=== PATIENT | female | born 1955 | race Caucasian/White ===

== ENCOUNTER 2017-01-30 23:24 | Inpatient (IN) | payer OTHER ==
[~2017-01-30] VITALS: Ht 160 cm; Wt 60.5 kg
[~2017-01-30 23:24] MED LIST: ACET50TA PO; ADV500INH INH; ALBU17IN INH; ALBU83IN INH; CALC600T7 PO; CALCD50TA PO; CALCIUM PO; CENT1TAB PO; DELT1TAB PO; DOCU100C PO; DOCU10ELUD PO; FLON0.054; FLOV100A3 INH; FLUT11IN INH; FLUT1SPR2; INCR1INH INH; LEXA1TAB2 PO; MEDR4PAK PO; MILKSUS PO; MUCI600T34 PO; NASA55AE; NICO14PA EXT; NICO7DIS4 TD; OMEP40CA2 PO; PRED10TA PO; ROBISYP PO; SPIR1CAP INH; SPIRIVA INH; SYMB16INH INH; VENTAER INH; ZITH250T PO; ZITH500T PO; [UNRECOGNIZED DRUG - OTHER] PO
[2017-01-31] MEDS ORDERED: IPRATROPIUM 0.5MG/ALBUTEROL 2.5MG INH SOL UD 3ML (DUONEB)(J7620) NEB PRN (00:45)
[2017-01-31 01:35] LABS: VENOUS BASE EXCESS 2.9 (-2.0-2.0); VENOUS PARTIAL PRESSURE CO2 45.2 mmHg (38.0-50.0); VENOUS PARTIAL PRESSURE O2 125.7 mmHg (30.0-50.0); VENOUS STANDARD HCO3 27.1 MEQ/L; VENOUS TOTAL CO2 29.5 MEQ/L (24.0-28.0)
[2017-01-31 01:37] LABS: BASO % 0.3 % (0.0-1.0); EOS # 0.1 K/mm3 (0.0-0.50); LARGE UNSTAINED CELL # 0.1 K/mm3 (0.0-0.4); LARGE UNSTAINED CELL % 0.4 % (0.0-4.0); LYMPH # 0.6 K/mm3 (1.5-4.5); LYMPH % 4.9 % (24.0-44.0); MEAN CORPUSCULAR HEMOGLOBIN 30.5 pg (27.0-33.0); MEAN CORPUSCULAR HGB CONC 32.3 g/dl (32.0-36.5); MEAN CORPUSCULAR VOLUME 94.3 fl (80.0-96.0); MONO # 0.2 K/mm3 (0.0-0.8); MONO % 1.3 % (0.0-5.0); NEUTROPHILS # 10.9 K/mm3 (1.8-7.7); NEUTROPHILS % 92.1 % (36.0-66.0); PLATELET COUNT, AUTOMATED 328 k/mm3 (150-450); RED CELL DISTRIBUTION WIDTH 12.2 % (11.5-14.5); WHITE BLOOD COUNT 11.8 K/mm3 (4.0-10.0)
[2017-01-31 02:03] LABS: ANION GAP 9 MEQ/L (8-16); BLOOD UREA NITROGEN 9 MG/DL (7-18); CARBON DIOXIDE LEVEL 29 MEQ/L (21-32); CHLORIDE LEVEL 102 MEQ/L (98-107); CREATININE FOR GFR 0.63 MG/DL (0.55-1.02); GLOMERULAR FILTRATION RATE > 60.0 (>45); GLUCOSE, FASTING 140 MG/DL (80-110); POTASSIUM SERUM 3.6 MEQ/L (3.5-5.1); SODIUM LEVEL 140 MEQ/L (136-145)
[2017-01-31] MEDS ORDERED: LevoFLOXacin IV 750 MG in APPROPRIATE DILUENT 1 EA IV ONE (02:45)
[2017-01-31] MEDS ORDERED: ALBUTEROL SULFATE 2.5 MG/0.5 ML INH NEB SOLN INH ONE (02:45)
[2017-01-31] MEDS ORDERED: LEVALBUTEROL 1.25 MG/0.5 ML CONCENTRATE NEB NEB PRN (07:15)
--- NOTE | 2017-01-31 07:51 | REP ---
Clinical: Cough. Dyspnea . Comparison: 10/22/2016 . Technique: PA and lateral. Findings: The mediastinum and cardiac silhouette are normal. The lung reed suggest emphysematous changes without acute consolidation, effusion, or pneumothorax. The skeletal structures are intact and normal. Impression: 1. Chronic emphysematous changes. 2. No acute cardiopulmonary process. Signed by Neeraj West MD 01/31/2017 07:42 A
[2017-01-31] MEDS ORDERED: LEVALBUTEROL 1.25 MG/0.5 ML CONCENTRATE NEB NEB ONE (08:00)
[2017-01-31] MEDS ORDERED: ALBUTEROL SULFATE 2.5 MG/0.5 ML INH NEB SOLN NEB SCH (08:00)
[2017-01-31] MEDS ORDERED: ASPIRIN 81 MG CHEW TABLET PO ONE (08:00)
[2017-01-31] MEDS ORDERED: NITROGLYCERIN 0.4 MG SUBL TABLET SL PRN (08:00)
[2017-01-31] MEDS ORDERED: ENOXAPARIN 40 MG/0.4 ML SYRINGE (J1650) SC ONE (08:15)
[2017-01-31] MEDS ORDERED: ATORVASTATIN 20 MG TAB PO ONE (08:15)
[2017-01-31] MEDS ORDERED: ALB2.5NEB INH (08:17)
[2017-01-31] MEDS: SYMBICORT 160/4.5MCG INHALER 6GM INH SCH ×2 (09:00→19:57)
--- NOTE | 2017-01-31 09:40 | ECGEPIP ---
Stationary ECG Study [facility] - ED Test Date: 2017-01-31 Pat Name: DAYNE MOHAN Department: Room: - Gender: F Criminal Psychologist: amanda : 1955 Requested By: EUGENIO Fairchild Order Number: [id number] Reading MD: Na Dias Measurements Intervals [place] Rate: 93 P: 86 VT: 136 QRS: 77 QRSD: 82 T: 70 QT: 358 QTc: 447 Interpretive Statements SINUS RHYTHM NONSPECIFIC ST & T-WAVE ABNORMALITY Electronically Signed On 01-31-2017 9:39:45 EDT by Na Dias
[2017-01-31 10:40] VITALS: BP 123/56
[2017-01-31] MEDS: LEVALBUTEROL 1.25 MG/0.5 ML CONCENTRATE NEB INH SCH ×4 (11:03→23:13)
[2017-01-31 12:00] VITALS: BP 120/52
[2017-01-31] MEDS: methylPREDNISolone INJ 125 MG/2 ML VIAL (J2930) IV SCH ×3 (12:00→23:29)
[2017-01-31] MEDS: DOXYCYCLINE HYCLATE 100 MG TAB PO SCH ×2 (12:01→20:18)
[2017-01-31] MEDS: MULTIVITAMINS/MINERALS THERAP 1 TAB PO SCH (12:02)
[2017-01-31] MEDS: PANTOPRAZOLE 40MG TAB (PROTONIX) PO SCH (12:02)
[2017-01-31] MEDS: guaiFENesin ER 600 MG TAB PO SCH ×2 (12:02→20:18)
[2017-01-31 16:00] VITALS: BP 140/58
[2017-01-31 20:15] VITALS: BP 133/63
[2017-01-31] MEDS: ESCITALOPRAM OXALATE 10 MG TAB (LEXAPRO) PO SCH (20:17)
--- NOTE | 2017-01-31 20:17 | HPEPDOC ---
General Date of Admission Jan 31, 2017 at 07:09 Primary Care Physician: LUISA BAILEY Attending Physician: TARA DE LA TORRE MD Chief Complaint The patient is a 61-year-old female admitted with a reason for visit of Acute Exacerbation Of Chronic Obstructive Airways. Source: Patient, RN notes reviewed, Old records Exam Limitations: No limitations Timing/Duration: Week(s) Associated Symptoms: Chest Pain, Cough, Headaches, Nausea, Shortness of breath , Weakness, Dizziness History of Present Illness Ms. Traore is a 61-year-old female who presents to [facility]'s emergency Department with increased shortness of breath. At time of evaluation she is on the progressive care unit. She is sitting comfortably on the hospital bed with a nasal cannula in place. She is accompanied by her grandson. Past medical history significant for pulmonary hypertension, chronic obstructive pulmonary disease on 2 L via nasal cannula, gastroesophageal reflux disease, depression, and throat cancer status post resection. Patient states that she presented to the emergency department because she couldn 't breathe. She states that she felt that she was hyperventilating and she felt diaphoretic. She states that she felt as if she was being suffocated. She reports feeling unwell for the past week. She states that she felt as if she was coming down with a cold, flu, or allergies. She been using her breathing machine and oxygen at home but was not improving. She states that her nose and eyes were burning and watery and reports that Mucinex helped some. She also reports a sore throat that she states is overall, a cough productive of clear to yellow sputum, and bilateral maxillary pain. Also reports a frontal headache that she describes as a cure dull. Further reports weakness, dizziness last evening without fall, chest pain on her lower left side that she describes as feeling as if she had "bumped into a dresser". States that she took 2 ibuprofen and it appeared to help. Also reports nausea two nights ago without vomiting. Reports increased burping. Also reports a pain in the left upper quadrant that she describes as being "punched in the gut". Admits to tingling in her toes without swelling. Hospitalist service was consulted and patient was subsequently admitted for further medical management. Home Medications Scheduled (Incruse Ellipta) 62.5 Mcg/Inh Inh 62.5 MCG INH DAILY (Reported) Budesonide/Formoterol (Symbicort 160-4.5 Mcg/Act) 60 Puff/Inhaler Aers 2 PUFF INH BID (Reported) Escitalopram Oxalate (Lexapro) 20 Mg Tab 20 MG PO QHS (Reported) Fluticasone Propionate (Fluticasone Propionate 0.05%) 120 [place]/16 Gm Naspr 2 SPRAY NA BID (Reported) PER NOSTRIL Guaifenesin (Mucinex) 600 Mg Tab 600 MG PO BID (Reported) Multivitamins (Centrum Silver Adult 50+) 1 Tab Tab 1 TAB PO DAILY (Reported) Omeprazole (Omeprazole) 40 Mg Cap 40 MG PO DAILY (Reported) Scheduled PRN Albuterol Sulfate (Ventolin Hfa) 200 Puff/8 Gm Aers 2 PUFFS INH Q4HP PRN PRN SHORTNESS OF BREATH (Reported) Albuterol Sulfate (Albuterol Sulfate) 2.5 Mg/0.5 Ml Neb 2.5 MG INH Q4H PRN PRN SHORTNESS OF BREATH (Reported) Allergies Coded Allergies: Sulfa Drugs (Verified Allergy, Intermediate, itching, rash, burning, ) Sulfa Drugs Cross Reactors (Verified Allergy, Intermediate, itching, rash , burning, 02/12/13) Penicillins (Verified Allergy, Unknown, rash, burning, itching, 06/14/14) Penicillins Cross Reactors (Verified Allergy, Unknown, rash, burning, itching, 06/14/14) Past Medical History Medical History 1. Chronic obstructive pulmonary disease on 2 L by nasal cannula 2. Pulmonary hypertension 3. Gastroesophageal reflux disease 4. Depression 5. Throat cancer status post resection Surgical History 1. Right breast lumpectomy 2. Throat resection 3. Nine genital cyst removals 4. Complete teeth removal Family History Significant Family History: Cancer (father, brother - prostate cancer), Heart disease (father), Vascular disease (Brother, myocardial infarction), Other ( mother, goiter) Social History * Smoker: former Smoker (third of a pack per day for 40 years) Alcohol: other (former) Drugs: denies Recent Travel/Sick Contacts: Denies: Recent sick contacts, Recent travel Lives independently with her daughter and her daughter's family Retired data management manager Reports to toxin the home Remote travel to [place] and domestic travel Denies environmental exposures Review of Symptoms Constitutional: Reports: Weakness, Denies: Chills, Fever, Night Sweats Eyes: Reports: Other (denies blurry vision, diplopia, acute transient vision loss) ENT: Reports: Head Aches (frontal, achy/dull), Sinus Congestion (bilateral maxillary sinuses), Sore Throat (overall), Denies: Epistaxis Skin: Denies: Lesions, Rash Pulmonary: Reports: Cough (productive of clear to yellow phlegm), Dyspnea Cardiovascular: Reports: Chest Pain (lower left thoracic), Lt Headedness, Denies: Edema, Orthopnea, Paroxysmal Noc. Dyspnea Gastrointestinal: Reports: Nausea, Other Symptoms (admits to increased burping) , Denies: Abdominal Pain, Constipation, Diarrhea, Hematochezia, Melena, Vomiting Genitourinary: Denies: Dysuria, Frequency, Hematuria, Incontinence Hematologic: Denies: Bruising, Petecchia, Purpura Musculoskeletal: Reports: Spasms (tingling in her feet and toes) Neurological: Reports: Weakness Physical Examination General Exam: Positive: Alert, Cooperative, No Acute Distress Eye Exam: Positive: Conjunctiva & lids normal, EOMI, PERRLA, Negative: Sclera icteric ENT Exam: Positive: Atraumatic, Mucous membr. moist/pink, Nares Patent (nasal cannula in place), Tongue Midline Neck Exam: Positive: Supple, Negative: JVD, Lymphadenopathy, thyromegaly Chest Exam: Positive: Clear to auscultation, Normal air movement Heart Exam: Positive: Normal S1, Normal S2, Rate Normal, Regular Rhythm, Negative: Murmurs, Rubs Abdomen Exam: Positive: Normal bowel sounds, Soft, Negative: Hepatospenomegaly, Hernia, Mass, Tenderness Extremity Exam: Positive: Normal pulses, Negative: Clubbing, Cyanosis, Edema, Swelling, Tenderness Neuro Exam: Positive: Cranial Nerves 3-12 NL, Normal Speech, Strength at 5/5 X4 ext Other physical findings Chest x-ray IMPRESSION: 1. Chronic emphysematous changes. 2. No acute cardiopulmonary process. Vital Signs T 98.7 HR 66 BP 111/59 O2 96% on 2 L by nasal cannula Height (in): 63 Weight (kg): 57.1 BMI (kg): 22.3 Laboratory Data Labs 24H Laboratory Tests 2 01/31/17 01:20: Anion Gap 9, White Blood Count 11.8H, Red Blood Count 4.61, Hemoglobin 14.0, Hematocrit 43.5, Mean Corpuscular Volume 94.3, Mean Corpuscular Hemoglobin 30.5 , Mean Corpuscular Hemoglobin Concent 32.3, Red Cell Distribution Width 12.2, Platelet Count 328, Neutrophils (%) (Auto) 92.1H, Lymphocytes (%) (Auto) 4.9L, Monocytes (%) (Auto) 1.3, Eosinophils (%) (Auto) 1.0, Basophils (%) (Auto) 0.3, Neutrophils # (Auto) 10.9H, Lymphocytes # (Auto) 0.6L, Monocytes # (Auto) 0.2, Eosinophils # (Auto) 0.1, Basophils # (Auto) 0.0, Blood Gas Bicarbonate Standard 27.1, Blood Urea Nitrogen 9, Creatinine 0.63, Sodium Level 140, Potassium Level 3.6, Chloride Level 102, Carbon Dioxide Level 29, Calcium Level 9.0, Total Creatine Kinase 66, Creatine Kinase MB 3.5, Creatine Kinase MB Relative Index 5.30H, Glomerular Filtration Rate > 60.0, Large Unclassified Cells # 0.1, Large Unclassified Cells % 0.4, Troponin I 0.44H, Venous Blood Base Excess 2.9H, Venous Blood pH 7.412, Venous Blood Partial Pressure CO2 45.2 , Venous Blood Partial Pressure O2 125.7H, Venous Blood Total Carbon Dioxide 29.5H, Venous Blood HCO3 28.1H, Venous Blood Oxygen Saturation 99.0H 01/31/17 05:55: Total Creatine Kinase 90, Creatine Kinase MB 5.6H, Creatine Kinase MB Relative Index 6.22H, Troponin I 0.67#H 01/31/17 12:03: Total Creatine Kinase 97, Creatine Kinase MB 6.6H, Creatine Kinase MB Relative Index 6.80H, Troponin I 0.66H 01/31/17 17:47: Total Creatine Kinase 113, Creatine Kinase MB 6.4H, Creatine Kinase MB Relative Index 5.66H, Troponin I 0.68H CBC/BMP Laboratory Tests 01/31/17 01:20 Calcium Level 9.0, Total Creatine Kinase 66, Red Blood Count 4.61, Mean Corpuscular Volume 94.3, Mean Corpuscular Hemoglobin 30.5, Mean Corpuscular Hemoglobin Concent 32.3, Red Cell Distribution Width 12.2, Neutrophils (%) (Auto ) 92.1 H, Lymphocytes (%) (Auto) 4.9 L, Monocytes (%) (Auto) 1.3, Eosinophils (% ) (Auto) 1.0, Basophils (%) (Auto) 0.3, Neutrophils # (Auto) 10.9 H, Lymphocytes # (Auto) 0.6 L, Monocytes # (Auto) 0.2, Eosinophils # (Auto) 0.1, Basophils # (Auto) 0.0 Microbiology Microbiology 01/31/17 Blood Culture, Received Pending 01/31/17 Blood Culture, Received Pending 01/31/17 Gram Stain - Final, Resulted 01/31/17 Sputum Culture, Resulted Pending 01/31/17 Respiratory Virus Panel (PCR) (SUZETTE) - Final, Complete 01/31/17 Influenza Virus Type A Antigen - Final, Complete 01/31/17 Influenza Virus Type B Antigen - Final, Complete RAD Interpretation STUDY: CXR Rad Actions: Report Reviewed (Impression: Chronic emphysematous changes. No acute cardiopulmonary process.) Assessment/Plan Ms. Traore is a 61-year-old female with past medical history significant for chronic obstructive pulmonary disease on 2 L by nasal cannula, pulmonary hypertension, gastroesophageal reflux disease, depression, and throat cancer status post resection who presented with increased shortness of breath and increased use of her breathing treatments and oxygen likely secondary to acute exacerbation of chronic obstructive pulmonary disease. Problems (1) Acute exacerbation of chronic obstructive airways disease Status: Acute Problem Text: Chest x-ray shows chronic emphysematous change Provide breathing treatments Give Solu-Medrol 60 mg IV every 6 hours Monitor vital signs Begin doxycycline Provide Mucinex (2) Elevated troponin Status: Acute Problem Text: Troponin at presentation was 0.44 Repeated troponin was 0.67 EKG reveals no significant change from prior Current cardiac markers Monitor patient on progressive care unit Place patient on aspirin Provide nitroglycerin as needed (3) Depression Status: Chronic Problem Text: Continue patient on home medication Plan / VTE VTE Prophylaxis Ordered?: Yes (Lovenox 40 mg subcutaneous daily) Plan Plan Acute exacerbation of chronic obstructive pulmonary disease Patient reports increased shortness of breath with increased use of her medications and oxygen. Venous pH was 7.412. Patient has a white count of 11.8. Have started doxycycline as this patient is allergic to penicillin and sulfa. Both cause hives. We'll provide breathing treatments for symptomatically relief. Will provide Mucinex for sinus relief. Continue to monitor patient's daily vital signs and CBC. Patient remains on oxygen 2 L by nasal cannula. Influenza screen was negative. Blood cultures are pending. Chest x-ray reveals no acute pulmonary process and chronic emphysematous change. Elevated troponin Patient's troponin at presentation was 0.44. Repeated troponin was 0.67. EKG shows no reported change from prior EKG. We'll trend cardiac markers. Patient on 81 mg aspirin. Patient admitted to the progressive care unit for telemetry monitoring. Depression Patient remains on her medication of Lexapro. DVT prophylaxis: Lovenox 40 mg subcutaneous daily; compression stockings Diet: COPD Disposition The progressive care unit Anticipated hospitalization: 2 nights Attending: Dr. De La Torre Diet: Continue Current (COPD) Activity: Continue Current (out of bed at will with assistance) Respiratory: Other Respiratory (2 L by nasal cannula with titration orders to maintain saturation between 88-92%) Diagnostics: Check Labs, Repeat Labs in AM, Obtain Cultures Anticipated Discharge: Home WINTER AVALOS Jan 31, 2017 20:17
--- NOTE | 2017-01-31 21:20 | ECGEPIP ---
Stationary ECG Study [facility] Test Date: 2017-01-31 Pat Name: DAYNE MOHAN Department: Room: [place] [address] Gender: F Director Market Intelligence: BLOSSOM : 1955 Requested By: TARA Bailon Order Number: [id number] Reading MD: Pedro Boyer Measurements Intervals [place] Rate: 84 P: 80 MS: 128 QRS: 71 QRSD: 79 T: 62 QT: 409 QTc: 485 Interpretive Statements Normal sinus rhythm Nonspecific ST-T wave abnormalities No significant change when compared to prior tracing of earlier this date Electronically Signed On 01-31-2017 21:20:12 EDT by Pedro Boyer
[2017-01-31 23:56] VITALS: BP 128/65
[2017-02-01] MEDS: LEVALBUTEROL 1.25 MG/0.5 ML CONCENTRATE NEB INH SCH ×6 (03:38→22:36)
[2017-02-01 04:07] VITALS: BP 118/56
[2017-02-01 05:27] LABS: BASO % 0.1 % (0.0-1.0); EOS # 0.2 K/mm3 (0.0-0.50); EOS % 1.5 % (0.0-3.0); LARGE UNSTAINED CELL % 0.3 % (0.0-4.0); LYMPH # 0.5 K/mm3 (1.5-4.5); LYMPH % 3.7 % (24.0-44.0); MEAN CORPUSCULAR HEMOGLOBIN 30.2 pg (27.0-33.0); MEAN CORPUSCULAR HGB CONC 32.5 g/dl (32.0-36.5); MEAN CORPUSCULAR VOLUME 92.8 fl (80.0-96.0); MONO # 0.3 K/mm3 (0.0-0.8); NEUTROPHILS # 12.3 K/mm3 (1.8-7.7); NEUTROPHILS % 92.3 % (36.0-66.0); PLATELET COUNT, AUTOMATED 344 k/mm3 (150-450); RED CELL DISTRIBUTION WIDTH 12.2 % (11.5-14.5); WHITE BLOOD COUNT 13.3 K/mm3 (4.0-10.0)
[2017-02-01 05:45] LABS: ANION GAP 10 MEQ/L (8-16); BLOOD UREA NITROGEN 16 MG/DL (7-18); CALCIUM LEVEL 9.1 MG/DL (8.8-10.2); CARBON DIOXIDE LEVEL 28 MEQ/L (21-32); CHLORIDE LEVEL 107 MEQ/L (98-107); CREATININE FOR GFR 0.67 MG/DL (0.55-1.02); GLOMERULAR FILTRATION RATE > 60.0 (>45); GLUCOSE, FASTING 168 MG/DL (80-110); POTASSIUM SERUM 4.1 MEQ/L (3.5-5.1); SODIUM LEVEL 145 MEQ/L (136-145)
[2017-02-01 07:45] VITALS: BP 113/59
[2017-02-01] MEDS: SYMBICORT 160/4.5MCG INHALER 6GM INH SCH ×2 (07:57→19:40)
[2017-02-01] MEDS: TIOTROPIUM INHALER/CAPSULE (SPIRIVA) INH SCH (07:57)
--- NOTE | 2017-02-01 08:12 | ECHO ---
DATE: 01/31/2017 REFERRING PHYSICIAN: Dr. Alcantara. INDICATION: Chest discomfort. HEIGHT: 160 cm. WEIGHT: 54 kg. DIMENSION: IVS: 1.1 LV: 3.9 LVPW: 1.1 LA: 2.9 Aorta: 3.3 FINDINGS: The study is of good technical quality. Left ventricle is normal size and systolic function with estimated ejection fraction (EF) around 65-70%. No segmental wall motion abnormalities are appreciated. Right ventricle is also normal size and systolic function. Both atria appear normal. Aortic valve has minimal sclerotic abnormalities but normal mobility. There are also mild mitral annular calcifications at the base of posterior mitral leaflet. Tricuspid valve appears normal. Pulmonic valve was not well seen. No pericardial effusion is noted. Inferior vena cava is normal size. Aortic root is normal. Aortic arch was not visualized. Abdominal aorta appears normal. Doppler interrogation reveals no aortic valve disease. There is trace mitral insufficiency. Tricuspid valve is functionally competent. Pulmonic valve was not well seen. Mitral inflow pattern and tissue Doppler imaging of mitral annulus reveal grade 1 diastolic dysfunction. Tissue Doppler velocities of mitral annulus are 6.0 cm/sec and septal annulus 8.7 cm/sec in lateral annulus. CONCLUSIONS: 1. Study is good technical quality. 2. Normal LV size and systolic function. 3. No significant valvular disease. 4. Normal central venous pressure. 5. Unable to estimate pulmonary artery pressure but no indirect signs to suggest pulmonary hypertension. COMMENTS: Subacute bacterial endocarditis (SBE) prophylaxis is not recommended. Study does not provide clear-cut explanation for chest discomfort.
[2017-02-01] MEDS: guaiFENesin ER 600 MG TAB PO SCH ×2 (08:58→20:52)
[2017-02-01] MEDS: ATORVASTATIN 20 MG TAB PO SCH (08:58)
[2017-02-01] MEDS: DOXYCYCLINE HYCLATE 100 MG TAB PO SCH ×2 (08:58→20:52)
[2017-02-01] MEDS: ASPIRIN 81 MG CHEW TABLET PO SCH (08:58)
[2017-02-01] MEDS: PANTOPRAZOLE 40MG TAB (PROTONIX) PO SCH (08:58)
[2017-02-01] MEDS: MULTIVITAMINS/MINERALS THERAP 1 TAB PO SCH (08:58)
[2017-02-01] MEDS: ENOXAPARIN 40 MG/0.4 ML SYRINGE (J1650) SC SCH (08:59)
--- NOTE | 2017-02-01 10:06 | ECGEPIP ---
Stationary ECG Study [facility] - ED Test Date: 2017-01-31 Pat Name: DAYNE MOHAN Department: Room: [place] [address] Gender: F Clipper Counters: amanda : 1955 Requested By: EUGENIO Fairchild Order Number: [id number] Reading MD: Herman Lewis Measurements Intervals [place] Rate: 84 P: 83 TX: 130 QRS: 75 QRSD: 76 T: 69 QT: 403 QTc: 476 Interpretive Statements SINUS RHYTHM NONSPECIFIC MODERATE ST DEPRESSION SIMILAR TO PRIOR ON SAME DATE Electronically Signed On 02-01-2017 10:05:49 EDT by Herman Lewis
--- NOTE | 2017-02-01 10:46 | IPNPDOC ---
Date Seen The patient was seen on 02/01/17. Progress Note SUBJECTIVE: Ms. Traore is laying on her right side upon evaluation this morning. She states that she is feeling a little better. Denies dizziness, weakness, lightheadedness. States that the chest pain that was present on admission has dissipated. Troponins continue to decline. This morning's troponin was 0.34. Denies any acute events overnight. Has no concerns this time. Patient reports that she is ambulating around the room without difficulty. States she has not ventured out into the nettles yet. She reports that she is on 2 L of oxygen 24 7. Have adjusted her Solu-Medrol dose to 80 mg every 12 hours. She was previously on 80 mg every 8 hours. OBJECTIVE PHYSICAL EXAMINATION: VITAL SIGNS: Please see below. GENERAL: Petite female laying on her right side upon evaluation this morning, is slightly older than stated age, in no apparent distress HEENT: Atraumatic, normocephalic, PERRL, EOMI, oral mucosa appears pink and moist, nasal septum appears midline, nasal cannula in place, nares appear patent CARDIOVASCULAR: Regular rate and rhythm, normal S1 and S2, no murmur, rub, click RESPIRATORY: Clear to auscultation bilaterally, adequate inspiratory and extremity airway excursion, no wheeze,, rhonchi, rales ABDOMINAL: Flat, soft, nontender, nondistended, diminished bowel sounds throughout EXTREMITIES: Peripheral pulses appreciated bilaterally in upper extremities, symmetrical, equal, +2/4; peripheral pulses difficult to appreciate in lower extremities, no edema appreciated, sequential stockings in place NEUROLOGICAL: Cranial nerves II through XII appear grossly intact, moving all four extremities appropriately PSYCHOLOGICAL: Appears somewhat subdued this morning LABORATORY DATA: Please see below. MICROBIOLOGY: Please see below. DVT prophylaxis ordered?: Lovenox 40 mg subcutaneous daily ASSESSMENT AND PLAN: This is a 61-year-old female who presented with increasing shortness of breath likely secondary to acute exacerbation of chronic obstructive pulmonary disease. PROBLEMS: 1. Acute exacerbation of chronic obstructive palmar disease: He should Solu- Medrol has been adjusted to 80 mg every 12 hours. Continues on Spiriva, Xopenex , Symbicort, Mucinex. Continues with doxycycline as patient has allergies to penicillin and sulfa drugs. White count is slightly elevated from yesterday 13.3. Likely secondary to Solu-Medrol. Continue to monitor with daily CBC. Respiratory panel, influenza screen and blood cultures have remained negative up to this point. 2. Elevated troponin: Patient's troponin continues to trend downward. Last recorded value was 0.34. Patient denies continued chest pain. Patient has nitroglycerin as needed for chest pain. 3. Depression: Patient remains on Lexapro. 4. Dyslipidemia: Patient is on Lipitor. 5. Gastroesophageal reflux disease: Patient remains on Protonix. DISPOSITION: Patient remains admitted to the progressive care unit. Have adjusted patient Solu-Medrol to 80 mg every 12 hours. White count shows a slight bump to 13.3, likely secondary to Solu-Medrol. Patient remains on 2 L by nasal cannula and is oxygenating well at 97%. Opponent's continued to decrease. Past or value was 0.34. Respiratory panel, influenza screen, and blood cultures have remained negative up to this point. Anticipate discharge in the next 2-3 days. VS, I&O, [facility] Vital Signs/I&O Vital Signs Date Time Temp Pulse Resp B/P Pulse Ox O2 Delivery O2 Flow Rate FiO2 02/01/17 09:40 Nasal Cannula 2.0 02/01/17 07:45 97.1 76 22 113/59 97 I&O- Last 24 Hours up to 6 AM 02/01/17 05:59 Intake Total 1070 ml Output Total 1200 ml Balance -130 ml Laboratory Data 24H LABS Laboratory Tests 2 01/31/17 12:03: Creatine Kinase MB 6.6H, Creatine Kinase MB Relative Index 6.80H, Total Creatine Kinase 97, Troponin I 0.66H 01/31/17 17:47: Creatine Kinase MB 6.4H, Creatine Kinase MB Relative Index 5.66H, Total Creatine Kinase 113, Troponin I 0.68H 01/31/17 23:53: Creatine Kinase MB 4.7H, Creatine Kinase MB Relative Index 5.40H, Total Creatine Kinase 87, Troponin I 0.52#H 02/01/17 05:13: Creatine Kinase MB 4.0H, Creatine Kinase MB Relative Index 5.71H, Total Creatine Kinase 70, Troponin I 0.34#H, Anion Gap 10, White Blood Count 13.3H, Red Blood Count 4.29, Hemoglobin 13.0, Hematocrit 39.8, Mean Corpuscular Volume 92.8, Mean Corpuscular Hemoglobin 30.2, Mean Corpuscular Hemoglobin Concent 32.5 , Red Cell Distribution Width 12.2, Platelet Count 344, Neutrophils (%) (Auto) 92.3H, Lymphocytes (%) (Auto) 3.7L, Monocytes (%) (Auto) 2.0, Eosinophils (%) ( Auto) 1.5, Basophils (%) (Auto) 0.1, Neutrophils # (Auto) 12.3H, Lymphocytes # ( Auto) 0.5L, Monocytes # (Auto) 0.3, Eosinophils # (Auto) 0.2, Basophils # (Auto ) 0.0, Blood Urea Nitrogen 16#, Creatinine 0.67, Sodium Level 145, Potassium Level 4.1, Chloride Level 107, Carbon Dioxide Level 28, Calcium Level 9.1, Glomerular Filtration Rate > 60.0, Large Unclassified Cells # 0.0, Large Unclassified Cells % 0.3 CBC/BMP Laboratory Tests 02/01/17 05:13 Calcium Level 9.1, Red Blood Count 4.29, Mean Corpuscular Volume 92.8, Mean Corpuscular Hemoglobin 30.2, Mean Corpuscular Hemoglobin Concent 32.5, Red Cell Distribution Width 12.2, Neutrophils (%) (Auto) 92.3 H, Lymphocytes (%) (Auto) 3.7 L, Monocytes (%) (Auto) 2.0, Eosinophils (%) (Auto) 1.5, Basophils (%) (Auto ) 0.1, Neutrophils # (Auto) 12.3 H, Lymphocytes # (Auto) 0.5 L, Monocytes # ( Auto) 0.3, Eosinophils # (Auto) 0.2, Basophils # (Auto) 0.0 Microbiology Microbiology 01/31/17 Blood Culture - Preliminary, Resulted No growth after 24 hours . All specim... 01/31/17 Blood Culture - Preliminary, Resulted No growth after 24 hours . All specim... 01/31/17 Gram Stain - Final, Resulted 01/31/17 Sputum Culture, Resulted Pending 01/31/17 Respiratory Virus Panel (PCR) (SUZETTE) - Final, Complete 01/31/17 Influenza Virus Type A Antigen - Final, Complete 01/31/17 Influenza Virus Type B Antigen - Final, Complete WINTER AVALOS-Ninfa Feb 01, 2017 10:46
[2017-02-01 11:50] VITALS: BP 123/57
[2017-02-01] MEDS: methylPREDNISolone INJ 125 MG/2 ML VIAL (J2930) IV SCH ×2 (13:03→23:48)
[2017-02-01 16:00] VITALS: BP 136/63
[2017-02-01 20:05] VITALS: BP 122/68
[2017-02-01] MEDS: ESCITALOPRAM OXALATE 10 MG TAB (LEXAPRO) PO SCH (20:52)
[2017-02-01] MEDS: ACETAMINOPHEN TAB 650MG DOSE (2X325MG) PO PRN (22:00)
[2017-02-01 23:53] VITALS: BP 127/64
[2017-02-02] MEDS: LEVALBUTEROL 1.25 MG/0.5 ML CONCENTRATE NEB INH SCH ×6 (04:00→23:52)
[2017-02-02 04:26] VITALS: BP 122/63
[2017-02-02 06:14] LABS: BASO % 0.1 % (0.0-1.0); EOS % 0.2 % (0.0-3.0); LARGE UNSTAINED CELL % 0.4 % (0.0-4.0); LYMPH # 0.5 K/mm3 (1.5-4.5); LYMPH % 4.3 % (24.0-44.0); MEAN CORPUSCULAR HEMOGLOBIN 30.6 pg (27.0-33.0); MEAN CORPUSCULAR HGB CONC 32.8 g/dl (32.0-36.5); MEAN CORPUSCULAR VOLUME 93.2 fl (80.0-96.0); MONO # 0.3 K/mm3 (0.0-0.8); MONO % 2.5 % (0.0-5.0); NEUTROPHILS # 9.5 K/mm3 (1.8-7.7); NEUTROPHILS % 92.6 % (36.0-66.0); PLATELET COUNT, AUTOMATED 317 k/mm3 (150-450); RED CELL DISTRIBUTION WIDTH 12.4 % (11.5-14.5); WHITE BLOOD COUNT 10.3 K/mm3 (4.0-10.0)
[2017-02-02 06:31] LABS: ANION GAP 5 MEQ/L (8-16); BLOOD UREA NITROGEN 15 MG/DL (7-18); CALCIUM LEVEL 8.6 MG/DL (8.8-10.2); CARBON DIOXIDE LEVEL 32 MEQ/L (21-32); CHLORIDE LEVEL 104 MEQ/L (98-107); CREATININE FOR GFR 0.66 MG/DL (0.55-1.02); GLOMERULAR FILTRATION RATE > 60.0 (>45); GLUCOSE, FASTING 161 MG/DL (80-110); MAGNESIUM LEVEL 1.8 MG/DL (1.8-2.4); POTASSIUM SERUM 4.3 MEQ/L (3.5-5.1); SODIUM LEVEL 141 MEQ/L (136-145)
--- NOTE | 2017-02-02 07:01 | ECGEPIP ---
Stationary ECG Study [facility] Test Date: 2017-01-31 Pat Name: DAYNE MOHAN Department: Room: [place] [address] Gender: F Infection Control Practitioner: : 1955 Requested By: TARA Bailon Order Number: [id number] Reading MD: Pedro Boyer Measurements Intervals [place] Rate: 81 P: 81 GA: 127 QRS: 74 QRSD: 81 T: 63 QT: 404 QTc: 469 Interpretive Statements Normal sinus rhythm Nonspecific ST-T wave abnormalities No significant change when compared to prior tracings of earlier this date Electronically Signed On 02-02-2017 7:01:03 EDT by Pedro Boyer
--- NOTE | 2017-02-02 07:02 | ECGEPIP ---
Stationary ECG Study [facility] Test Date: 2017-02-01 Pat Name: DAYNE MOHAN Department: Room: [place] [address] Gender: F Operations Officer: JOSELUIS : 1955 Requested By: TARA Bailon Order Number: [id number] Reading MD: Pedro Boyer Measurements Intervals [place] Rate: 74 P: 72 DE: 108 QRS: 66 QRSD: 86 T: 54 QT: 431 QTc: 480 Interpretive Statements Normal sinus rhythm with short DE interval and PACs Nonspecific ST-T wave abnormalities, less prominent than yesterday's tracings Electronically Signed On 02-02-2017 7:02:16 EDT by Pedro Boyer
[2017-02-02] MEDS: SYMBICORT 160/4.5MCG INHALER 6GM INH SCH ×2 (07:28→19:23)
[2017-02-02] MEDS: TIOTROPIUM INHALER/CAPSULE (SPIRIVA) INH SCH (07:28)
[2017-02-02 07:40] VITALS: BP 143/63
[2017-02-02] MEDS: MULTIVITAMINS/MINERALS THERAP 1 TAB PO SCH (09:27)
[2017-02-02] MEDS: guaiFENesin ER 600 MG TAB PO SCH ×2 (09:27→20:28)
[2017-02-02] MEDS: DOXYCYCLINE HYCLATE 100 MG TAB PO SCH ×2 (09:27→20:28)
[2017-02-02] MEDS: ATORVASTATIN 20 MG TAB PO SCH (09:27)
[2017-02-02] MEDS: PANTOPRAZOLE 40MG TAB (PROTONIX) PO SCH (09:27)
[2017-02-02] MEDS: predniSONE 20 MG TAB PO SCH ×2 (09:27→20:27)
[2017-02-02] MEDS: ASPIRIN 81 MG CHEW TABLET PO SCH (09:27)
[2017-02-02] MEDS: ENOXAPARIN 40 MG/0.4 ML SYRINGE (J1650) SC SCH (09:27)
--- NOTE | 2017-02-02 09:31 | IPNPDOC ---
Date Seen The patient was seen on 02/02/17. Progress Note SUBJECTIVE: Ms. rTaore is evaluated at bedside this morning. She is just finishing breakfast during my evaluation. She reports that she did request to breathing treatments overnight last night. Also reports bilateral rib pain. States that she is expectorating more sputum and coughing. Reports that she is ambulating in her room. Have recommended that patient ambulates with the nurse in the hallway. Advised patient that IV steroids will be changed to by mouth tapering dose steroids. Started patient on prednisone 60 mg twice a day. Past patient and she feels ready to discharge and she states that she thinks needs another day or two. Denies further chest pain, nausea, vomiting, abdominal pain. Says her breathing has improved somewhat. States that she still having episodes of intermittent burping. Patient did call her daughter on the telephone and I discussed with daughter for mother's treatment and management. Discussed extensively with her the elevated troponin level and that evaluation thus far has been negative. OBJECTIVE: PHYSICAL EXAMINATION: VITAL SIGNS: Please see below. GENERAL: Petite female sitting comfortably in hospital bed on evaluation this morning, appears stated age, in no apparent distress, nasal cannula in place HEENT: Atraumatic, normocephalic, PERRL, EOMI, oral mucosa appears pink and moist, nasal septum appears midline, nares patent, nasal cannula in place CARDIOVASCULAR: Regular rate and rhythm, normal S1 and S2, no murmur, rub, click RESPIRATORY: Clear to auscultation bilaterally, adequate inspiratory and expiratory airway excursion, no wheeze, rhonchi, crackles ABDOMINAL: Flat, soft, nontender, nondistended, bowel sounds appreciated EXTREMITIES: Peripheral pulses appreciated bilaterally in upper extremities, equal, symmetrical, +2/4, no edema appreciated in lower extremities NEUROLOGICAL: Cranial nerves II through XII appear grossly intact, all four extremities moving appropriately PSYCHOLOGICAL: Mood and affect appear appropriate LABORATORY DATA: Please see below. MICROBIOLOGY: Please see below. DVT prophylaxis ordered?: Lovenox 40 mg subcutaneous daily ASSESSMENT AND PLAN: PROBLEMS: 1. Acute exacerbation of chronic obstructive pulmonary disease: Patient's steroid has been adjusted from IV Solu-Medrol to by mouth prednisone starting at 60 mg twice a day. Continues on Spiriva, Xopenex, Symbicort, Mucinex. Continues with doxycycline as patient has allergies to penicillin and sulfa drugs. White count is 10.3. This is improved from yesterday. CRP is < 0.30. Awaiting sputum cultures. 3. Depression: Patient remains on Lexapro. 4. Dyslipidemia: Patient is on Lipitor. 5. Gastroesophageal reflux disease: Patient remains on Protonix. DISPOSITION: Patient remains admitted to the progressive care unit. No acute events noted on telemetry. Patient no longer reports chest pain. Does complain of some rib pain likely secondary to coughing. White count continues to improve. Remains on doxycycline. Awaiting sputum culture results. adjusted from IV Solu-Medrol to by mouth prednisone. Have encouraged patient to ambulate. Anticipate discharge in the next day or two. VS, I&O, 24H, Fishbone Vital Signs/I&O Vital Signs Date Time Temp Pulse Resp B/P Pulse Ox O2 Delivery O2 Flow Rate FiO2 02/02/17 07:40 98.0 87 22 143/63 97 Nasal Cannula 2.0 I&O- Last 24 Hours up to 6 AM 02/02/17 06:00 Intake Total 1320 ml Output Total 1450 ml Balance -130 ml Laboratory Data 24H LABS Laboratory Tests 2 02/02/17 05:44: Anion Gap 5L, White Blood Count 10.3H, Red Blood Count 4.16, Hemoglobin 12.7, Hematocrit 38.8, Mean Corpuscular Volume 93.2, Mean Corpuscular Hemoglobin 30.6 , Mean Corpuscular Hemoglobin Concent 32.8, Red Cell Distribution Width 12.4, Platelet Count 317, Neutrophils (%) (Auto) 92.6H, Lymphocytes (%) (Auto) 4.3L, Monocytes (%) (Auto) 2.5, Eosinophils (%) (Auto) 0.2, Basophils (%) (Auto) 0.1, Neutrophils # (Auto) 9.5H, Lymphocytes # (Auto) 0.5L, Monocytes # (Auto) 0.3, Eosinophils # (Auto) 0.0, Basophils # (Auto) 0.0, C-Reactive Protein, Quantitative < 0.30, Blood Urea Nitrogen 15, Creatinine 0.66, Sodium Level 141, Potassium Level 4.3, Chloride Level 104, Carbon Dioxide Level 32, Calcium Level 8.6L, Glomerular Filtration Rate > 60.0, Large Unclassified Cells # 0.0, Large Unclassified Cells % 0.4, Magnesium Level 1.8 CBC/BMP Laboratory Tests 02/02/17 05:44 Calcium Level 8.6 L, Red Blood Count 4.16, Mean Corpuscular Volume 93.2, Mean Corpuscular Hemoglobin 30.6, Mean Corpuscular Hemoglobin Concent 32.8, Red Cell Distribution Width 12.4, Neutrophils (%) (Auto) 92.6 H, Lymphocytes (%) (Auto) 4.3 L, Monocytes (%) (Auto) 2.5, Eosinophils (%) (Auto) 0.2, Basophils (%) (Auto ) 0.1, Neutrophils # (Auto) 9.5 H, Lymphocytes # (Auto) 0.5 L, Monocytes # (Auto ) 0.3, Eosinophils # (Auto) 0.0, Basophils # (Auto) 0.0 Microbiology Microbiology 01/31/17 Blood Culture - Preliminary, Resulted No Growth after 48 hours. All Specime... 01/31/17 Blood Culture - Preliminary, Resulted No Growth after 48 hours. All Specime... 01/31/17 Gram Stain - Final, Resulted 01/31/17 Sputum Culture, Resulted Pending 01/31/17 Respiratory Virus Panel (PCR) (SUZETTE) - Final, Complete 01/31/17 Influenza Virus Type A Antigen - Final, Complete 01/31/17 Influenza Virus Type B Antigen - Final, Complete WINTER AVALOS Feb 02, 2017 09:31
[2017-02-02 12:00] VITALS: BP 123/60
[2017-02-02] MEDS ORDERED: SLF 3 ML SYR IV PRN (14:15)
[2017-02-02 16:00] VITALS: BP 134/72
[2017-02-02 20:00] VITALS: BP 135/63
[2017-02-02] MEDS: ESCITALOPRAM OXALATE 10 MG TAB (LEXAPRO) PO SCH (20:28)
[2017-02-02] MEDS: ACETAMINOPHEN TAB 650MG DOSE (2X325MG) PO PRN (20:28)
[2017-02-02] MEDS: SLF 3 ML SYR IV SCH (20:29)
[2017-02-02 23:59] VITALS: BP 140/64
[2017-02-03] MEDS: LEVALBUTEROL 1.25 MG/0.5 ML CONCENTRATE NEB INH SCH ×3 (03:38→11:09)
[2017-02-03 04:00] VITALS: BP 132/64
[2017-02-03] MEDS: SLF 3 ML SYR IV SCH (05:39)
[2017-02-03 05:54] LABS: BASO % 0.1 % (0.0-1.0); EOS % 0.4 % (0.0-3.0); LARGE UNSTAINED CELL # 0.1 K/mm3 (0.0-0.4); LARGE UNSTAINED CELL % 0.7 % (0.0-4.0); LYMPH # 0.6 K/mm3 (1.5-4.5); LYMPH % 6.8 % (24.0-44.0); MEAN CORPUSCULAR HEMOGLOBIN 30.1 pg (27.0-33.0); MEAN CORPUSCULAR HGB CONC 32.1 g/dl (32.0-36.5); MEAN CORPUSCULAR VOLUME 93.6 fl (80.0-96.0); MONO # 0.3 K/mm3 (0.0-0.8); MONO % 4.1 % (0.0-5.0); NEUTROPHILS # 7.1 K/mm3 (1.8-7.7); NEUTROPHILS % 87.9 % (36.0-66.0); PLATELET COUNT, AUTOMATED 298 k/mm3 (150-450); RED CELL DISTRIBUTION WIDTH 12.2 % (11.5-14.5); WHITE BLOOD COUNT 8.1 K/mm3 (4.0-10.0)
[2017-02-03 06:09] LABS: ANION GAP 7 MEQ/L (8-16); BLOOD UREA NITROGEN 14 MG/DL (7-18); CALCIUM LEVEL 8.5 MG/DL (8.8-10.2); CARBON DIOXIDE LEVEL 32 MEQ/L (21-32); CHLORIDE LEVEL 103 MEQ/L (98-107); CREATININE FOR GFR 0.62 MG/DL (0.55-1.02); GLOMERULAR FILTRATION RATE > 60.0 (>45); GLUCOSE, FASTING 166 MG/DL (80-110); POTASSIUM SERUM 4.5 MEQ/L (3.5-5.1); SODIUM LEVEL 142 MEQ/L (136-145)
[2017-02-03] MEDS: TIOTROPIUM INHALER/CAPSULE (SPIRIVA) INH SCH (07:39)
[2017-02-03] MEDS: SYMBICORT 160/4.5MCG INHALER 6GM INH SCH (07:39)
[2017-02-03 07:45] VITALS: BP 125/62
[2017-02-03] MEDS: guaiFENesin ER 600 MG TAB PO SCH (09:16)
[2017-02-03] MEDS: predniSONE 20 MG TAB PO SCH (09:17)
[2017-02-03] MEDS: MULTIVITAMINS/MINERALS THERAP 1 TAB PO SCH (09:17)
[2017-02-03] MEDS: DOXYCYCLINE HYCLATE 100 MG TAB PO SCH (09:17)
[2017-02-03] MEDS: ASPIRIN 81 MG CHEW TABLET PO SCH (09:17)
[2017-02-03] MEDS: ATORVASTATIN 20 MG TAB PO SCH (09:17)
[2017-02-03] MEDS: PANTOPRAZOLE 40MG TAB (PROTONIX) PO SCH (09:17)
[2017-02-03] MEDS: ENOXAPARIN 40 MG/0.4 ML SYRINGE (J1650) SC SCH (09:18)
[2017-02-03] MEDS ORDERED: DELT1TAB PO (10:12)
[2017-02-03] MEDS ORDERED: LEVA750T PO (10:12)
--- NOTE | 2017-02-03 19:49 | DS.PDOC ---
Discharge Summary General Date of Admission Jan 31, 2017 at 07:09 Date of Discharge Feb 03, 2017 at 12:22 Primary Care Physician: LUCI SALAZAR Attending Physician: CALDERON KRAFT MD Discharge Summary PROCEDURES PERFORMED DURING STAY: None ADMITTING DIAGNOSES: 1. Acute exacerbation of chronic obstructive pulmonary disease 2. Elevated troponin 3. Depression DISCHARGE DIAGNOSES: 1. Acute exacerbation of chronic obstructive pulmonary disease 2. Elevated troponin 3. Depression COMPLICATIONS/CHIEF COMPLAINT: Acute Exacerbation Of Chronic Obstructive Airways. HISTORY OF PRESENT ILLNESS: Ms. Traore is a 61-year-old female who presents to [facility]'s emergency Department with increased shortness of breath. At time of evaluation she is on the progressive care unit. She is sitting comfortably on the hospital bed with a nasal cannula in place. She is accompanied by her grandson. Past medical history significant for pulmonary hypertension, chronic obstructive pulmonary disease on 2 L via nasal cannula, gastroesophageal reflux disease, depression, and throat cancer status post resection. Patient states that she presented to the emergency department because she couldn 't breathe. She states that she felt that she was hyperventilating and she felt diaphoretic. She states that she felt as if she was being suffocated. She reports feeling unwell for the past week. She states that she felt as if she was coming down with a cold, flu, or allergies. She been using her breathing machine and oxygen at home but was not improving. She states that her nose and eyes were burning and watery and reports that Mucinex helped some. She also reports a sore throat that she states is overall, a cough productive of clear to yellow sputum, and bilateral maxillary pain. Also reports a frontal headache that she describes as a cure dull. Further reports weakness, dizziness last evening without fall, chest pain on her lower left side that she describes as feeling as if she had "bumped into a dresser". States that she took 2 ibuprofen and it appeared to help. Also reports nausea two nights ago without vomiting. Reports increased burping. Also reports a pain in the left upper quadrant that she describes as being "punched in the gut". Admits to tingling in her toes without swelling. Hospitalist service was consulted and patient was subsequently admitted for further medical management. HOSPITAL COURSE: Patient was admitted to the progressive care unit for telemetry monitoring. She was started on doxycycline secondary to elevated WBC. Breathing treatments were provided and she was continued on Mucinex for symptomatic relief. Solu-medrol 80mg IV was initiated. Patient remained on 2L of oxygen via nasal cannula as she is oxygen dependent at home. Influenza screen was negative. Troponin level initially increased, but then tapered down. Electrocardiogram revealed no acute changes to prior report. Continued ASA 81mg. Remained on lexapro for depression. Solu-medrol was decreased and eventually adjusted to a tapering dose of prednisone. Patient's breathing improved as did she clinically. Encouraged patient to ambulate during hospitalization. At time of discharge adjusted patient's antibiotic to levaquin and provided 5 extra days of coverage. Advised patient to follow-up with pulmonary and cardiology. DISCHARGE MEDICATIONS: Please see below. ALLERGIES: Please see below. PHYSICAL EXAMINATION ON DISCHARGE: VITAL SIGNS: Please see below. GENERAL: Petite female, appears her stated age, in no apparent distress HEENT: Atraumatic, normocephalic, PERRL, EOMI, oral mucosa appear pink and moist , nasal septum appears midline, nares are patent, nasal cannula is present NECK: Supple, soft, trachea midline, no lymphadenopathy CARDIOVASCULAR EXAMINATION: Regular rate and rhythm, normal S1 and S2, no murmur , click, rub RESPIRATORY EXAMINATION: Clear to auscultation bilaterally, diminished breath sounds throughout, but adequate airway excursion, no wheeze, rhonchi, crackles ABDOMINAL EXAMINATION: Flat, soft, non-tender, non-distended, bowel sounds appreciated EXTREMITIES: Peripheral pulses appreciated bilaterally in upper and lower extremities, equal, symmetrical, +2/4, no appreciable edema SKIN: Without lesion or rash NEUROLOGICAL EXAMINATION: Cranial nerves II-XII grossly intact PSYCHIATRIC EXAMINATION: Mood and affect appear appropriate LABORATORY DATA: Please see below. IMAGING: Chest x-ray IMPRESSION: 1. Chronic emphysematous changes. 2. No acute cardiopulmonary process. PROGNOSIS: Stable ACTIVITY: As tolerated DIET: 2 g sodium DISCHARGE PLAN: Follow discharge instructions. Manage health at home. Improve health and wellness. DISPOSITION: 01 Home, Self-Care. DISCHARGE INSTRUCTIONS: 1. Follow up with Luci Salazar, primary care provider, on 02/09/17 at 5:15pm 2. Follow up with Dr. Herring, wildlife biology technician, on 02/23/17 at 3:00pm 3. Appointment with Dr. Buitrago, cardiology, on 02/24/17 at 11:00am ITEMS TO FOLLOWUP ON ON OUTPATIENT: 1. Chronic medical conditions 2. COPD 3. Elevated troponins DISCHARGE CONDITION: Stable TIME SPENT ON DISCHARGE: Greater than 20 minutes. Vital Signs/I&Os Vital Signs Date Time Temp Pulse Resp B/P Pulse Ox O2 Delivery O2 Flow Rate FiO2 02/03/17 07:52 Nasal Cannula 2.0 02/03/17 07:45 97.7 71 22 125/62 98 I&O- Last 24 Hours up to 6 AM 02/03/17 06:00 Intake Total 1700 ml Output Total 1400 ml Balance 300 ml Laboratory Data Labs 24H Laboratory Tests 2 02/03/17 05:39: Anion Gap 7L, White Blood Count 8.1, Red Blood Count 4.22, Hemoglobin 12.7, Hematocrit 39.5, Mean Corpuscular Volume 93.6, Mean Corpuscular Hemoglobin 30.1 , Mean Corpuscular Hemoglobin Concent 32.1, Red Cell Distribution Width 12.2, Platelet Count 298, Neutrophils (%) (Auto) 87.9H, Lymphocytes (%) (Auto) 6.8L, Monocytes (%) (Auto) 4.1, Eosinophils (%) (Auto) 0.4, Basophils (%) (Auto) 0.1, Neutrophils # (Auto) 7.1, Lymphocytes # (Auto) 0.6L, Monocytes # (Auto) 0.3, Eosinophils # (Auto) 0.0, Basophils # (Auto) 0.0, Blood Urea Nitrogen 14, Creatinine 0.62, Sodium Level 142, Potassium Level 4.5, Chloride Level 103, Carbon Dioxide Level 32, Calcium Level 8.5L, Glomerular Filtration Rate > 60.0, Large Unclassified Cells # 0.1, Large Unclassified Cells % 0.7, Magnesium Level 2.0 CBC/BMP Laboratory Tests 02/03/17 05:39 Calcium Level 8.5 L, Red Blood Count 4.22, Mean Corpuscular Volume 93.6, Mean Corpuscular Hemoglobin 30.1, Mean Corpuscular Hemoglobin Concent 32.1, Red Cell Distribution Width 12.2, Neutrophils (%) (Auto) 87.9 H, Lymphocytes (%) (Auto) 6.8 L, Monocytes (%) (Auto) 4.1, Eosinophils (%) (Auto) 0.4, Basophils (%) (Auto ) 0.1, Neutrophils # (Auto) 7.1, Lymphocytes # (Auto) 0.6 L, Monocytes # (Auto) 0.3, Eosinophils # (Auto) 0.0, Basophils # (Auto) 0.0 Microbiology Microbiology 01/31/17 Blood Culture - Preliminary, Resulted No Growth after 72 hours. All specime... 01/31/17 Blood Culture - Preliminary, Resulted No Growth after 72 hours. All specime... 01/31/17 Gram Stain - Final, Resulted 01/31/17 Sputum Culture - Preliminary, Resulted Streptococcus Group C Yeast Like Organism 01/31/17 Respiratory Virus Panel (PCR) (SUZETTE) - Final, Complete 01/31/17 Influenza Virus Type A Antigen - Final, Complete 01/31/17 Influenza Virus Type B Antigen - Final, Complete Discharge Medications Scheduled (Incruse Ellipta) 62.5 Mcg/Inh Inh 62.5 MCG INH DAILY (Reported) (Deltasone) 20 Mg Tab 60 MG PO QAM Take 60mg for one day (starting on 02/04/17), then take 40mg for two days, then take 20mg for two days Budesonide/Formoterol (Symbicort 160-4.5 Mcg/Act) 60 Puff/Inhaler Aers 2 PUFF INH BID (Reported) Escitalopram Oxalate (Lexapro) 20 Mg Tab 20 MG PO QHS (Reported) Fluticasone Propionate (Fluticasone Propionate 0.05%) 120 [place]/16 Gm Naspr 2 SPRAY NA BID (Reported) PER NOSTRIL Guaifenesin (Mucinex) 600 Mg Tab 600 MG PO BID (Reported) Levofloxacin Hemihydrate (Levaquin) 750 Mg Tab 750 MG PO DAILY Multivitamins (Centrum Silver Adult 50+) 1 Tab Tab 1 TAB PO DAILY (Reported) Omeprazole (Omeprazole) 40 Mg Cap 40 MG PO DAILY (Reported) Scheduled PRN Albuterol Sulfate (Ventolin Hfa) 200 Puff/8 Gm Aers 2 PUFFS INH Q4HP PRN PRN SHORTNESS OF BREATH (Reported) Albuterol Sulfate (Albuterol Sulfate) 2.5 Mg/0.5 Ml Neb 2.5 MG INH Q4H PRN PRN SHORTNESS OF BREATH (Reported) Allergies Coded Allergies: Sulfa Drugs (Verified Allergy, Intermediate, itching, rash, burning, ) Sulfa Drugs Cross Reactors (Verified Allergy, Intermediate, itching, rash , burning, 02/12/13) Penicillins (Verified Allergy, Unknown, rash, burning, itching, 06/14/14) Penicillins Cross Reactors (Verified Allergy, Unknown, rash, burning, itching, 06/14/14) WINTER AVALOSME-I Feb 03, 2017 19:49
[2017-02-04] MEDS ORDERED: predniSONE 20 MG TAB PO SCH (09:00)
== END 2017-02-03 12:22 | disposition home or self-care (01) | DRG 140 ==
LOC: EDBD 23:24 → M ED 01-31 00:52 → M ED INP 01-31 07:09 → M PCU 01-31 10:00
PROVIDERS: ADMIT General Practice; ATTEND General Practice
DX: J44.1 Chronic obstructive pulmonary disease with (acute) exacerbation (principal); F32.9 Major depressive disorder, single episode, unspecified; K21.9 Gastro-esophageal reflux disease without esophagitis; Z85.818 Personal history of malignant neoplasm of other sites of lip, oral cavity, and pharynx; Z88.2 Allergy status to sulfonamides; Z88.0 Allergy status to penicillin; Z79.899 Other long term (current) drug therapy; E78.5 Hyperlipidemia, unspecified; R74.8 Abnormal levels of other serum enzymes

== ENCOUNTER 2017-04-02 21:05 | Emergency (ER) | payer OTHER ==
[~2017-04-02] VITALS: Ht 162.6 cm; Wt 62.1 kg
[2017-04-02 21:05] VITALS: BP 165/77
[~2017-04-02 21:05] MED LIST changes: +ALB2.5NEB INH; +LEVA750T PO
[2017-04-02] MEDS ORDERED: MUCI600T34 PO (21:14)
[2017-04-02] MEDS ORDERED: LEXA1TAB2 PO (21:14)
[2017-04-02] MEDS ORDERED: ASPI81TA7 PO (21:16)
[2017-04-02] MEDS ORDERED: AZITHROMYCIN 250 MG TAB PO ONE (23:00)
[2017-04-02] MEDS ORDERED: predniSONE 20 MG TAB PO ONE (23:00)
[2017-04-02] MEDS ORDERED: AZIT250T3 PO (23:02)
[2017-04-02] MEDS ORDERED: PRED20TA PO (23:02)
== END 2017-04-02 23:08 | disposition home or self-care (01) ==
LOC: M ED 22:05
DX: J44.1 Chronic obstructive pulmonary disease with (acute) exacerbation (principal); Z87.891 Personal history of nicotine dependence; Z88.0 Allergy status to penicillin; Z88.2 Allergy status to sulfonamides; Z85.818 Personal history of malignant neoplasm of other sites of lip, oral cavity, and pharynx; Z79.899 Other long term (current) drug therapy

== ENCOUNTER → 2017-06-13 | Outpatient (REF) | payer OTHER, MEDICAID ==
[~2017-06-13] MED LIST changes: +ASPI1TAB15 PO; +AZIT-12 PO; -DOCU100C PO; +DOCU100C16 PO; -LEVA750T PO; +LEVA750T7 PO; -MUCI600T34 PO; +MUCI600T37 PO; +PRED20TA PO
== END ==
LOC: M LAB REF 17:42
PROVIDERS: ATTEND Nurse Practitioner Family
DX: Z12.4 Encounter for screening for malignant neoplasm of cervix (principal)

== ENCOUNTER → 2018-02-07 | Outpatient (REF) | payer OTHER, MEDICAID ==
[2018-02-07 12:15] LABS: BASO # 0.1 10^3/uL (0.0-0.2); BASO % 1.1 % (0.0-1.0); EOS # 0.3 10^3/uL (0.0-0.50); EOS % 3.6 % (0.0-3.0); HEMOGLOBIN 14.4 g/dl (12.0-15.5); IMMATURE GRANULOCYTE % 0.3 % (0-3.0); LYMPH # 2.6 10^3/uL (1.5-4.5); MEAN CORPUSCULAR HEMOGLOBIN 30.3 pg (27.0-33.0); MEAN CORPUSCULAR HGB CONC 32.7 g/dl (32.0-36.5); MEAN CORPUSCULAR VOLUME 92.4 fl (80.0-96.0); MONO # 0.6 10^3/uL (0.0-0.8); MONO % 8.7 % (0.0-5.0); NEUTROPHILS # 3.7 10^3/uL (1.8-7.7); NEUTROPHILS % 50.3 % (36.0-66.0); PLATELET COUNT, AUTOMATED 404 10^3/uL (150-450); RED BLOOD COUNT 4.76 10^6/uL (4.00-5.40); RED CELL DISTRIBUTION WIDTH 13.4 % (11.5-14.5); WHITE BLOOD COUNT 7.3 10^3/uL (4.0-10.0)
[2018-02-07 12:38] LABS: ALBUMIN 4.2 GM/DL (3.2-5.2); ALBUMIN/GLOBULIN RATIO 1.56 (1.00-1.93); ALKALINE PHOSPHATASE 109 U/L (45-117); ALT/SGPT 14 U/L (12-78); ANION GAP 7 MEQ/L (8-16); AST/SGOT 11 U/L (7-37); BILIRUBIN,TOTAL 0.6 MG/DL (0.2-1.0); BLOOD UREA NITROGEN 10 MG/DL (7-18); CALCIUM LEVEL 9.9 MG/DL (8.8-10.2); CARBON DIOXIDE LEVEL 30 MEQ/L (21-32); CHLORIDE LEVEL 105 MEQ/L (98-107); CREATININE FOR GFR 0.69 MG/DL (0.55-1.30); GLOMERULAR FILTRATION RATE > 60.0 (>45); GLUCOSE, FASTING 82 MG/DL (70-100); POTASSIUM SERUM 4.3 MEQ/L (3.5-5.1); SODIUM LEVEL 142 MEQ/L (136-145); TOTAL PROTEIN 6.9 GM/DL (6.4-8.2)
[2018-02-07 12:42] LABS: TOTAL 25(OH) VITAMIN D 50.9 NG/ML (30.0-100.0)
== END ==
LOC: M LAB REF 11:48
DX: J44.9 Chronic obstructive pulmonary disease, unspecified (principal)

== ENCOUNTER 2019-01-07 19:54 | Emergency (ER) | payer OTHER ==
[~2019-01-07] VITALS: Ht 162.6 cm; Wt 52.3 kg
[~2019-01-07 19:54] MED LIST changes: +MILK120011 PO; -MILKSUS PO
[2019-01-07] MEDS ORDERED: OMEP-218 (20:09)
[2019-01-07] MEDS ORDERED: MONT10TA2 (20:09)
[2019-01-07] MEDS ORDERED: CETI10TA (20:09)
[2019-01-07] MEDS ORDERED: ARNU1INH (20:09)
[2019-01-07] MEDS ORDERED: ESCI20TA (20:09)
[2019-01-07] MEDS ORDERED: FLUTISP (20:09)
[2019-01-07 21:31] LABS: INFLUENZA A AMPLIFICATION NEGATIVE (NEGATIVE); INFLUENZA B AMPLIFICATION NEGATIVE (NEGATIVE)
[2019-01-07] MEDS ORDERED: methylPREDNISolone INJ 125 MG/2 ML VIAL (J2930) IV ONE (21:45)
[2019-01-07] MEDS ORDERED: IPRATROPIUM 0.5MG/ALBUTEROL 2.5MG INH SOL UD 3ML (DUONEB)(J7620) NEB SCH (21:45)
[2019-01-07 22:01] LABS: BASO % 0.3 % (0.0-1.0); EOS # 0.1 10^3/uL (0.0-0.50); EOS % 1.3 % (0.0-3.0); HEMATOCRIT 39.5 % (36.0-47.0); LYMPH # 0.9 10^3/uL (1.5-4.5); LYMPH % 10.5 % (24.0-44.0); MEAN CORPUSCULAR HGB CONC 32.9 g/dl (32.0-36.5); MONO # 0.5 10^3/uL (0.0-0.8); MONO % 6.1 % (0.0-5.0); NEUTROPHILS # 7.2 10^3/uL (1.8-7.7); NEUTROPHILS % 81.6 % (36.0-66.0); PLATELET COUNT, AUTOMATED 372 10^3/uL (150-450); RED BLOOD COUNT 4.34 10^6/uL (4.00-5.40); WHITE BLOOD COUNT 8.8 10^3/uL (4.0-10.0)
[2019-01-07 22:31] LABS: BLOOD UREA NITROGEN 9 MG/DL (7-18); CALCIUM LEVEL 8.6 MG/DL (8.8-10.2); CARBON DIOXIDE LEVEL 30 MEQ/L (21-32); CHLORIDE LEVEL 104 MEQ/L (98-107); CPK CREATINE PHOSPHOKINASE 63 U/L (26-192); CREATININE FOR GFR 0.66 MG/DL (0.55-1.30); GLOMERULAR FILTRATION RATE > 60.0 (>45); GLUCOSE, FASTING 99 MG/DL (70-100); MB/CK RELATIVE INDEX 2.06 (< OR =4); POTASSIUM SERUM 4.1 MEQ/L (3.5-5.1); SODIUM LEVEL 142 MEQ/L (136-145); TROPONIN I < 0.02 NG/ML (< 0.10)
[2019-01-07 22:41] LABS: ABG BASE EXCESS 1.3 (-2.0-2.0); ABG HCO3 26.3 MEQ/L (22.0-26.0); ABG O2 SATURATION 95.7 % (95.0-99.0); ABG PARTIAL PRESSURE CO2 43.2 mmHg (35.0-45.0); ABG PARTIAL PRESSURE O2 75.9 mmHg (75.0-100.0); ABG STANDARD HCO3 25.6 MEQ/L (22.0-26.0); ABG TOTAL CO2 27.7 MEQ/L (23.0-31.0); ABG pH (ARTERIAL) 7.403 UNITS (7.350-7.450)
[2019-01-07] MEDS ORDERED: DOXYCYCLINE HYCLATE 100 MG TAB PO ONE (23:15)
[2019-01-07] MEDS ORDERED: DOXY100C37 PO (23:19)
[2019-01-07] MEDS ORDERED: PRED20TA PO (23:19)
[2019-01-07] MEDS ORDERED: MUCI600T37 PO (23:19)
[2019-01-07 23:23] VITALS: BP 145/67
--- NOTE | 2019-01-08 01:36 | REP ---
Clinical: Shortness of breath on exertion . Comparison: 01/31/2017 . Technique: PA and lateral. Findings: The mediastinum and cardiac silhouette are normal. Oligemia and emphysematous changes are suggested (right greater than left). No acute consolidation, effusion, or pneumothorax. Skeletal structures are intact. Impression: 1. No acute cardiopulmonary process. Electronically Signed by Neeraj West MD 01/08/2019 01:27 A
--- NOTE | 2019-01-08 06:32 | ECGEPIP ---
Stationary ECG Study [facility] - ED Test Date: 2019-01-07 Pat Name: DAYNE MOHAN Department: Room: - Gender: F Coach Driver: MATT : 1955 Requested By: ADA Nelson PA-C Order Number: [id number] Reading MD: Bhavna Salinas Measurements Intervals [place] Rate: 71 P: 81 VT: 121 QRS: 82 QRSD: 89 T: 79 QT: 396 QTc: 431 Interpretive Statements SINUS RHYTHM NONSPECIFIC T-WAVE ABNORMALITY DELAYED R WAVE PROGRESSION 02/01/17 RATE DECREASED [facility] Electronically Signed On 01-08-2019 6:32:42 EST by Bhavna Salinas
== END 2019-01-07 23:32 | disposition home or self-care (01) ==
LOC: M ED 19:54
DX: J44.1 Chronic obstructive pulmonary disease with (acute) exacerbation (principal); J06.9 Acute upper respiratory infection, unspecified; I10 Essential (primary) hypertension; Z79.899 Other long term (current) drug therapy; Z79.82 Long term (current) use of aspirin; Z88.0 Allergy status to penicillin; Z88.2 Allergy status to sulfonamides; Z87.891 Personal history of nicotine dependence
CPT/HCPCS: 36600; 71046; 80048; 82550; 82553; 82803; 85025; 87502; 93005; 94640; 96374; 99284; J2930